=== PATIENT | male | born 1980 | race Caucasian/White ===

== ENCOUNTER 2016-05-25 08:14 | Day surgery (SDC) | payer OTHER ==
[~2016-05-25] VITALS: Ht 167.6 cm; Wt 78.6 kg
[~2016-05-25 08:14] MED LIST: 0.9% Sodium Chloride 1,000 ML IV SCH; IBUP1TAB56 PO; Sodium Chloride LOK Flush 10 mL Syringe IV PRN; fentaNYL-PF 50 mCg/mL 2 mL Inj IVPUSH PRN
[2016-05-25 08:30] VITALS: BP 124/77; PULSE 67; RESP 14; O2SAT 99
[2016-05-25] MEDS ORDERED: IBUP-1827 PO (08:33)
[2016-05-25 09:49] VITALS: BP 119/69; PULSE 72; RESP 10; O2SAT 92
[2016-05-25 09:54] VITALS: BP 119/69; PULSE 55; RESP 14; O2SAT 94
[2016-05-25 10:06] VITALS: BP 117/73; RESP 12; O2SAT 97
--- NOTE | 2016-05-25 10:58 | ENDO ---
[address] [address] ENDOSCOPY PROCEDURE PATIENT: BRENDA STONER : 1980 MR#: [id number] ADMIT: 05/25/2016 JOB ID: [id number] PROCEDURE: Esophagogastroduodenoscopy. INDICATION: Chronic diarrhea. ASA CLASSIFICATION: 2. MALLAMPATI SCORE: 2. MEDICATIONS: Versed 8 mg, fentanyl 175 mcg. INSTRUMENT USED: [id number]-J. PROCEDURE DETAILS: After informed consent was obtained, the patient was brought into the GI suite, where he was placed on oxygen via nasal cannula and monitored with continuous pulse oximeter, telemetry, and blood pressure monitoring. A time-out was performed. Then, he was placed in a left lateral decubitus position and medications were administered for sedation. A bite block was placed. The standard EGD scope was inserted in the bite block and advanced under direct visualization to second portion of duodenum without difficulty. FINDINGS: 1. Normal-appearing duodenal bulb, first and second portion of duodenum. Multiple random biopsies were obtained. 2. Normal-appearing pylorus, antrum and gastric body. 3. Retroflexed views in the gastric body revealed a normal-appearing cardia and fundus. 4. Multiple random biopsies were obtained throughout the antrum and body of the stomach. 5. The GE junction was at approximately 38 cm, and the squamocolumnar junction was at 37 cm. The squamocolumnar junction was regular. 6. Normal-appearing esophagus. IMPRESSION: Normal esophagogastroduodenoscopy exam to second portion of duodenum. RECOMMENDATIONS: 1. Await biopsy results. 2. Proceed to colonoscopy.
--- NOTE | 2016-05-25 11:02 | ENDO ---
[address] [address] ENDOSCOPY PROCEDURE PATIENT: BRENDA STONER : 1980 MR#: [id number] ADMIT: 05/25/2016 JOB ID: [id number] PROCEDURE PERFORMED: Colonoscopy. INDICATION: Chronic diarrhea. ASA CLASSIFICATION: 2. MALLAMPATI SCORE: 2. MEDICATIONS: Versed 8 mg, fentanyl 175 mcg. INSTRUMENT USED: [id number]-AL. PREP QUALITY: Good. PROCEDURE DETAILS: After completion of the EGD exam, the patient was turned around and then a digital rectal exam with palpation of the prostate was performed, which was unremarkable. The colonoscope was then inserted into the rectum and advanced under direct visualization to the terminal ileum which was identified by the presence of the ileocecal valve and villous- appearing mucosa of the terminal ileum. Once the terminal ileum was reached, the colonoscope was withdrawn back to the rectum as the mucosa and lumen were examined. Retroflexion was performed in the rectum. Following retroflexion, remaining air in the rectum was suctioned, and procedure was completed. FINDINGS: 1. Normal exam from rectum to terminal ileum. 2. Multiple random biopsies were obtained throughout the terminal ileum and colon. IMPRESSION: Normal colonoscopy. RECOMMENDATIONS: 1. Await biopsy results. 2. Trial of cholestyramine. COMPLICATIONS: None. ESTIMATED BLOOD LOSS: Less than 5 mL.
--- NOTE | 2016-05-26 11:25 | PATH ---
SURGICAL PATHOLOGY Attending Physician:Loretta Mustafa CASE STATUS: Signed Out PATIENT NAME: BRENDA STONER PID: [id number] : 1980 DATE COLLECTED:05/25/2016 17:17 SPECIMEN: 1: Duodenum, Biopsy 2: Gastric, Biopsy 3: Ileum, Biopsy 4: Colon, Biopsy CLINICAL HISTORY: 1). DUODENUM 2). GASTRIC 3). TERMINAL ILEUM 4). RANDOM COLON FINAL DIAGNOSIS: 1.DUODENUM BIOPSY: DUODENAL MUCOSA WITH NO DIAGNOSTIC ALTERATIONS. Negative for inflammation, sprue, dysplasia, and malignancy. 2.GASTRIC BIOPSY: BODY-TYPE MUCOSA WITH NO DIAGNOSTIC ALTERATIONS. Negative for Helicobacter organisms. Negative for intestinal metaplasia. Negative for dysplasia and malignancy. 3.TERMINAL ILEUM BIOPSY: NORMAL TERMINAL ILEUM MUCOSA. No inflammation identified. Negative for dysplasia and malignancy. 4.RANDOM COLON BIOPSY: COLONIC MUCOSA WITH NO DIAGNOSTIC ALTERATIONS. Negative for inflammation, dysplasia and malignancy. ICD10 code R10.9 GROSS DESCRIPTION: The specimen is received in four formalin filled containers labeled with the patient's name. 1). The specimen is sublabeled "duodenum" and consists of multiple portions of tissue which aggregate to 0.3 x 0.3 x 0.2 CM. The specimen is entirely submitted in cassette 1A. 2). The specimen is sublabeled "gastric" and consists of 2 portions of tissue which aggregate to 0.3 x 0.3 x 0.2 CM. The specimen is entirely submitted in cassette 2A. 3). The specimen is sublabeled " TI " and consists of 3 portions of tissue which aggregate to 0.4 x 0.3 x 0.2 CM. The specimen is entirely submitted in cassette 3A. 4). The specimen is sublabeled "random colon" and consists of multiple portions of tissue which aggregate to 0.6 x 0.4 x 0.2 CM. The specimen is entirely submitted in cassette 4A. 05/25/2016 [facility] MICRO DESCRIPTION: See diagnosis. ICD-9 CODES: CPT CODES: 1: 79434 2: 36905 3: 98638 4: 39376 Electronically Signed Out Patsy Galeas MD [facility] Pathology [facility] [place] [address] Technical component performed at [facility], [address], [address]
== END 2016-05-25 23:59 | disposition home or self-care (01) ==
LOC: END 08:14
PROVIDERS: ATTEND Internal Medicine Gastroenterology
DX: K52.9 Noninfective gastroenteritis and colitis, unspecified (principal); Z87.891 Personal history of nicotine dependence
CPT/HCPCS: 43239; 45380; 88305; 99153; G0500; J2250; J3010; J7030